=== PATIENT | male | born 1940 | race Caucasian/White ===

== ENCOUNTER 2017-11-04 10:07 | Emergency (ER) | payer BC ==
[~2017-11-04] VITALS: Ht 193 cm; Wt 98.2 kg
[2017-11-04] MEDS ORDERED: SIMVASTATIN5 M1 PO (10:18)
[2017-11-04] MEDS ORDERED: NORVASC 5MG5 MG/TAB PO (10:19)
[2017-11-04] MEDS ORDERED: AMARYL4 M1 PO (10:19)
[2017-11-04] MEDS ORDERED: GLUCOPHAGE500 MG/TAB PO (10:19)
[2017-11-04] MEDS ORDERED: ASPIR LOW81 MG PO (10:20)
[2017-11-04] MEDS ORDERED: LOSARTAN POTAS100 MG PO (10:20)
[2017-11-04] MEDS ORDERED: MULTIVITAMIN1 SGL PO (10:21)
[2017-11-04 10:57] LABS: HEMATOCRIT 44.9 % (42.0-52.0); HEMOGLOBIN 15.6 g/dL (13.5-18.0); MEAN CELL VOLUME 91 fl (78-100); MEAN CORPUSCULAR HEMOGLOBIN 32 pg (27-31); MEAN CORPUSCULAR HGB CONC 35 g/dL (33-37); PLATELET COUNT 162 K/mm3 (130-400); RED BLOOD COUNT 4.92 M/mm3 (4.20-5.60); RED CELL DISTRIBUTION WIDTH 12.6 % (11.5-14.5); WHITE BLOOD COUNT 9.2 K/mm3 (4.8-10.8)
[2017-11-04 11:02] LABS: BUN/CREATININE RATIO 22.7 (6.0-26.0); CALCIUM 8.8 mg/dL (8.4-10.2); POTASSIUM 3.5 mmol/L (3.6-5.0)
[2017-11-04 11:12] LABS: LYMPHOCYTE 15 % (20-51); MONOCYTE 6 % (3-10); NEUTROPHILS 76 % (42-75)
[2017-11-04 11:17] LABS: URINE COLOR YELLOW
[2017-11-04 11:18] LABS: URINE APPEARANCE CLEAR; URINE BILIRUBIN NEGATIVE (NEGATIVE); URINE BLOOD NEGATIVE (NEGATIVE); URINE KETONE NEGATIVE (NEGATIVE); URINE LEUKOCYTE ESTERASE NEGATIVE (NEGATIVE); URINE NITRATE NEGATIVE (NEGATIVE); URINE PROTEIN(semi-quant) 2+ mg/dL (NEGATIVE); URINE UROBILINOGEN NORMAL (NORMAL)
[2017-11-04 11:25] LABS: URINE MUCUS PRESENT (NOT PRESENT); URINE WBC 0-1 /hpf (0-3)
[2017-11-04] MEDS ORDERED: MACROBID 100 M100 MG PO (11:39)
[2017-11-04 11:56] VITALS: BP 152/80
== END 2017-11-04 12:00 | disposition home or self-care (01) ==
LOC: ED 10:07
PROVIDERS: Family Medicine
DX: N40.1 Benign prostatic hyperplasia with lower urinary tract symptoms (principal); N13.8 Other obstructive and reflux uropathy; R33.8 Other retention of urine; R39.15 Urgency of urination; I10 Essential (primary) hypertension; E11.9 Type 2 diabetes mellitus without complications; Z79.84 Long term (current) use of oral hypoglycemic drugs; Z79.82 Long term (current) use of aspirin; E78.5 Hyperlipidemia, unspecified
CPT/HCPCS: A4358